=== PATIENT | female | born 1970 | race Caucasian/White ===

== ENCOUNTER 2017-04-10 10:39 | Emergency (ER) | payer BC, MEDICAID ==
[2017-04-10] MEDS: IBUPROFEN 600 MG TAB PO (11:17)
[2017-04-10] MEDS: ACETAMINOPHEN 325 MG TAB PO (11:17)
== END 2017-04-10 12:13 | disposition home or self-care (01) ==
LOC: FTE 10:39
DX: R51 Headache (principal); R05 Cough
CPT/HCPCS: 99283